=== PATIENT | male | born 1985 | race Caucasian/White ===

== ENCOUNTER 2019-11-20 15:03 | Emergency (ER) | payer MEDICARE, MEDICAID ==
[~2019-11-20] VITALS: Ht 170.2 cm; Wt 124.7 kg
[2019-11-20 15:36] VITALS: BP_SYST 141
--- NOTE | 2019-11-20 17:39 | NUR ---
Patient to ER bed 3 to gown for evaluation. Side rails up.
--- NOTE | 2019-11-20 17:39 | NUR ---
Patient arrived in the ED c/o RUQ abdominal pain with intermittent SOB that started 4 days ago. Denied any chest pain. Denied any fevers, nausea, vomiting or chills. Patient is alert and oriented x4, respirations even and unlabored, speaking in full sentences and ambulating with a steady gait. VSS, pain level 10/10. Informed of the approximate wait time. Instructed to notify ED staff for any changes in condition or worsening of symptoms while waiting to be seen by the provider. Patient verbalized understanding.
--- NOTE | 2019-11-20 17:40 | NUR ---
ER Dr. Heart at bedside examining patient.
[2019-11-20 17:41] LABS: BASOPHILS # (AUTO) 0.1 K/uL (0.0-0.2); BASOPHILS % (AUTO) 0.7 % (0.0-2.0); EOSINOPHILS # (AUTO) 0.3 K/uL (0.0-0.4); EOSINOPHILS % (AUTO) 3.2 % (0.0-4.0); HEMATOCRIT 45.4 % (36-54); HEMOGLOBIN 14.8 g/dL (14.0-18.0); LYMPHOCYTES # (AUTO) 1.9 K/uL (1.0-5.5); LYMPHOCYTES % (AUTO) 21.9 % (20.5-51.5); MEAN CORPUSCULAR HEMOGLOBIN 28 pg (27-31); MEAN CORPUSCULAR HGB CONC 33 % (32-36); MEAN CORPUSCULAR VOLUME 86 fL (79.0-98.0); MONOCYTES # (AUTO) 0.7 K/uL (0.0-1.0); MONOCYTES % (AUTO) 8.3 % (1.7-9.3); NEUTROPHILS # (AUTO) 5.6 K/uL (1.8-7.7); NEUTROPHILS % (AUTO) 65.9 % (40.0-70.0); PLATELET COUNT (AUTO) 183 K/uL (130-430); RED CELL DISTRIBUTION WIDTH 15.4 % (9.0-15.0); WHITE BLOOD COUNT (AUTO) 8.5 K/uL (4.8-10.8)
--- NOTE | 2019-11-20 17:52 | NUR ---
Urine specimen collected and dipped.
[2019-11-20 18:30] LABS: CALCIUM 8.9 mg/dL (8.4-11.0); CREATININE 0.75 mg/dL (0.55-1.30); POTASSIUM 3.9 mmol/L (3.5-5.1)
[2019-11-20 18:31] LABS: INR 0.9 (0.80-1.20); PROTHROMBIN TIME 9.3 SECS (9.5-12.5)
[2019-11-20 18:35] LABS: ALBUMIN 3.7 g/dL (3.4-4.8); TOTAL BILIRUBIN 0.3 mg/dL (0.0-1.0)
--- NOTE | 2019-11-20 19:10 | NUR ---
Report given and care transferred to TOÑITO Campoverde.
--- NOTE | 2019-11-20 19:15 | NUR ---
Portable X Ray bedside, well tolerated
[2019-11-20 19:35] VITALS: BP_SYST 124
--- NOTE | 2019-11-20 19:35 | NUR ---
Patient given written and verbal discharge instructions and verbalizes understanding. ER MD discussed with patient the results and treatment provided. Patient in stable condition. ID arm band removed. Rx of Motrin, Azithromycin, and Sudafed given. Patient educated on pain management and to follow up with PMD. Pain Scale 0/10 Opportunity for questions provided and answered. Medication side effect fact sheet provided.
== END 2019-11-20 19:35 | disposition home or self-care (01) ==
LOC: SED 15:03
DX: R10.11 Right upper quadrant pain (principal); J40 Bronchitis, not specified as acute or chronic
CPT/HCPCS: 36415; 71045; 76700-TC; 80053; 81002; 82150-TC; 83605; 83690-TC; 85025; 85610-TC; 85730-TC; 99284

== ENCOUNTER 2019-11-24 23:44 | Inpatient (IN) | payer MEDICARE, MEDICAID ==
[~2019-11-24] VITALS: Ht 170.2 cm; Wt 122.5 kg
[2019-11-24 23:50] VITALS: BP_SYST 91
--- NOTE | 2019-11-25 00:19 | NUR ---
Patient to ER bed 4 to gown for evaluation. Side rails up. Report given to Sylvia SIBLEY.
--- NOTE | 2019-11-25 00:26 | NUR ---
Note undone in EDM - 11/25/19 at 0309 by ABRAHAM Pt presents to ER with c/o cough. Pt A&Ox4. Pt states he was seen here on 11/20/2019 and diagnosed with bronchitis but that symptoms have gotten worse. Pt states substernal chest pain with cough. Pt states nausea and vomiting present. Pt states states SOB, fever, body aches and head ache present. Pt states pain is 10/10. Upon assessment, pt has fever and chills and is using accessory muscles to breath. Pt has wheezing and rales noted. Pt on 2L nasal cannula with saturation of 91%. Will continue to monitor. This is a 34-year-old Male, with a history of hypertension and anxiety, who presents to the ED secondary to worsening cough over the past 8 days. No alleviating or exacerbating factors. Patient reports of associated chest pain when he coughs. Otherwise, he has no other complaints at this time. No headaches, palpitations, shortness of breath, fevers, congestion, body aches, nausea, vomiting, diarrhea, abdominal pain, back pain, recent travels, or sick contacts. Patient mentions he was seen here 11/20/2019. Patient had a negative chest x-ray and was diagnosed with Bronchitis. Notes of no relief with Z-pack given.
--- NOTE | 2019-11-25 00:26 | NUR ---
Pt presents to ER with c/o cough. Pt A&Ox4. Pt states he was seen here on 11/20/2019 and diagnosed with bronchitis but that symptoms have gotten worse. Pt states substernal chest pain with cough. Pt states nausea and vomiting present. Pt states states SOB, fever, body aches and head ache present. Pt states pain is 10/10. Upon assessment, pt has fever and chills and is using accessory muscles to breath. Pt has wheezing and rales noted bilaterally. Pt on 2L nasal cannula with saturation of 91%. Will continue to monitor.
[2019-11-25] MEDS ORDERED: ACETAMINOPHEN 325 MG TABLET PO ONE (01:15)
--- NOTE | 2019-11-25 01:33 | NUR ---
ER Dr. Guerra at bedside examining patient.
--- NOTE | 2019-11-25 01:41 | NUR ---
# 20 gauge angiocath placed to R AC. Use of asceptic technique. Opsite placed over site. Blood return noted. Blood for lab drawn from site. Flushed with 10 cc of normal saline. No evidence of infiltration noted. Patient tolerated well.
[2019-11-25] MEDS ORDERED: IPRATROPIUM/ALBUTEROL SULFATE 3 ML AMPUL.NEB (DUONEB) INH ONE (02:30)
--- NOTE | 2019-11-25 02:36 | NUR ---
Pt medicated per MD orders. Pt tolerated well. Will continue to monitor.
[2019-11-25] MEDS ORDERED: NACL 0.9% IV ONE ×2 (02:37→03:45)
[2019-11-25] MEDS ORDERED: cefTRIAXone 1 GM IVPB PREMIX 50 ML IV ONE (02:45)
--- NOTE | 2019-11-25 03:00 | NUR ---
RT at bedside.
[2019-11-25] MEDS ORDERED: HYDROcodone/ACETAMIN 5-325 MG TAB (NORCO/ VICODIN) PO PRN ×2 (03:15→08:15)
[2019-11-25] MEDS ORDERED: ONDANSETRON HCL 4 MG/2 ML VIAL IVP PRN ×2 (03:15→08:15)
[2019-11-25] MEDS ORDERED: ACETAMINOPHEN 325 MG TABLET PO PRN ×2 (03:15→08:15)
[2019-11-25] MEDS ORDERED: NACL 0.9% 1,000 ML IV ONE (03:15)
[2019-11-25 03:22] LABS: BASOPHILS # (AUTO) 0.1 K/uL (0.0-0.2); BASOPHILS % (AUTO) 0.8 % (0.0-2.0); EOSINOPHILS # (AUTO) 0.1 K/uL (0.0-0.4); EOSINOPHILS % (AUTO) 1.5 % (0.0-4.0); HEMATOCRIT 40.2 % (36-54); HEMOGLOBIN 13.3 g/dL (14.0-18.0); LYMPHOCYTES # (AUTO) 0.8 K/uL (1.0-5.5); LYMPHOCYTES % (AUTO) 11.6 % (20.5-51.5); MEAN CORPUSCULAR HEMOGLOBIN 28 pg (27-31); MEAN CORPUSCULAR HGB CONC 33 % (32-36); MEAN CORPUSCULAR VOLUME 85 fL (79.0-98.0); MONOCYTES % (AUTO) 15.4 % (1.7-9.3); NEUTROPHILS # (AUTO) 4.6 K/uL (1.8-7.7); NEUTROPHILS % (AUTO) 70.7 % (40.0-70.0); PLATELET COUNT (AUTO) 173 K/uL (130-430); RED BLOOD CELL COUNT(AUTO) 4.75 MIL/uL (4.2-6.2); RED CELL DISTRIBUTION WIDTH 14.8 % (9.0-15.0); WHITE BLOOD COUNT (AUTO) 6.5 K/uL (4.8-10.8)
[2019-11-25 03:37] LABS: PROTHROMBIN TIME 10.4 SECS (9.5-12.5)
[2019-11-25 03:40] LABS: CALCIUM 8.2 mg/dL (8.4-11.0); CREATININE 1.04 mg/dL (0.55-1.30); POTASSIUM 3.9 mmol/L (3.5-5.1)
--- NOTE | 2019-11-25 03:52 | NUR ---
Dr Marks cancelled IVF bolus by Dr Guerra,Dr Guerra notified and re-ordered ivf ns bolus 3700ml.
[2019-11-25 03:55] LABS: ALBUMIN 3.4 g/dL (3.4-4.8); PHOSPHORUS 3.2 mg/dL (2.7-4.5); THYROID STIMULATING HORMONE 1.63 uIu/mL (0.36-3.74); TOTAL BILIRUBIN 0.8 mg/dL (0.0-1.0)
--- NOTE | 2019-11-25 04:02 | NUR ---
MD Guerra speaking to MD Ly.
[2019-11-25] MEDS ORDERED: methylPREDNISolone SOD SUCC/PF 62.5 MG/ML VIAL IVP ONE (04:45)
--- NOTE | 2019-11-25 04:58 | NUR ---
Patient will be admitted to [facility]. Admitted to MEDICAL SURGICAL unit. Awaiting bed placement. Belongings list completed. Complete and up to date summary report printed. SBAR report to be given at bedside with opportunity for questions.
[2019-11-25] MEDS ORDERED: MULT-1170 PO (05:14)
[2019-11-25] MEDS ORDERED: SER100 PO (05:14)
[2019-11-25] MEDS ORDERED: THIA100T70 PO (05:14)
[2019-11-25] MEDS ORDERED: PRAZ2CAP2 PO (05:14)
[2019-11-25] MEDS ORDERED: FOLI-43 PO (05:14)
[2019-11-25] MEDS ORDERED: TRAZ300T11 PO (05:14)
[2019-11-25] MEDS ORDERED: NALT50TA PO (05:14)
[2019-11-25] MEDS ORDERED: PROP10TA10 PO (05:14)
[2019-11-25] MEDS ORDERED: [UNRECOGNIZED DRUG - CODE] PO (05:14)
--- NOTE | 2019-11-25 05:14 | NUR ---
Medication reconciliation completed with information provided by patient. Any prior medication reconciliation on file was reviewed and corrected.
[2019-11-25 05:16] LABS: BILIRUBIN,URINE NEGATIVE (NEGATIVE); BLOOD, URINE NEGATIVE (NEGATIVE); CLARITY/URINE CLEAR (CLEAR); COLOR,URINE YELLOW (YELLOW); GLUCOSE,URINE NEGATIVE (NEGATIVE); KETONES,URINE TRACE (NEGATIVE); LEUKOCYTE ESTERASE ,URINE NEGATIVE (NEGATIVE); NITRITE, URINE NEGATIVE (NEGATIVE); PROTEIN URINE NEGATIVE (NEGATIVE); UROBILINOGEN,URINE 0.2 (0.2-1.0)
--- NOTE | 2019-11-25 05:54 | NUR ---
Transfer to [facility]. IV present no sign or symptom of infiltration.
--- NOTE | 2019-11-25 06:00 | NUR ---
ADMISSION NOTE Received patient from ER via melly, received report from ABHI SIBLEY. Patient admitted with diagnosis of PNEUMONIA. Patient oriented to hospital routine, call light, toileting and safety-patient verbalized understanding.
[2019-11-25 06:22] VITALS: BP_SYST 116
[2019-11-25] MEDS: IPRATROPIUM/ALBUTEROL SULFATE 3 ML AMPUL.NEB (DUONEB) INH SCH ×3 (07:15→19:48)
[2019-11-25] MEDS ORDERED: KETOROLAC TROMETHAMINE 30 MG VIAL IVP ONE (07:15)
--- NOTE | 2019-11-25 07:16 | NUR ---
CALLED MD. PATIENT IS REQUESTING FOR PAIN MEDICATION FOR HIS CHEST PAIN DURING COUGH AND INSPIRATION 07/26. MD ORDERED TORADOL 30MG IVP ONE TIME DOSE TO BE GIVEN NOW, AND DUONEB Q6H WHILE AWAKE WITH FIRST DOSE TO BE GIVEN NOW. PRIMARY CARE NURSE RADHA MADE AWARE.
[2019-11-25 07:50] VITALS: BP_SYST 116
[2019-11-25 08:00] VITALS: BP_SYST 129
--- NOTE | 2019-11-25 08:00 | NUR ---
RN OPENING NOTE PATIENT IS RESTING IN BED, ALERT ORIENTED X4. DENIES PAIN OR DISCOMFORT. BED AT LOW POSITION AND CALL LIGHT WITHIN REACH, PATIENT WAS ASSESSED, VITAL SIGNS ARE STABLE WILL CONTINUE TO MONITOR
[2019-11-25] MEDS ORDERED: DOCUSATE SODIUM 100 MG CAPSULE PO SCH (09:00)
[2019-11-25] MEDS ORDERED: cefTRIAXone 1 GM in D5W 50 ML IV SCH (09:00)
[2019-11-25] MEDS ORDERED: LACTOBACILLUS RHAMNOSUS GG 1 CAP CAPSULE PO SCH (09:00)
[2019-11-25] MEDS: DOCUSATE SODIUM 100 MG CAPSULE PO SCH (09:00)
[2019-11-25] MEDS: NACL 0.9% 1,000 ML IV SCH ×2 (09:05→18:15)
--- NOTE | 2019-11-25 10:00 | NUR ---
RN NOTE PATIENT WAS GIVEN HIS MEDICATION, AND ATE HIS BREAKFAST, WILL CONTINUE TO MONITOR.
[2019-11-25 12:00] VITALS: BP_SYST 125
[2019-11-25] MEDS ORDERED: KETOROLAC TROMETHAMINE 30 MG VIAL IVP PRN (12:00)
--- NOTE | 2019-11-25 12:00 | NUR ---
RN NOTE PATIENT WAS SERVED HIS LUNCH.
[2019-11-25] MEDS ORDERED: THIAMINE HCL 100 MG TABLET PO ONE (12:30)
[2019-11-25] MEDS ORDERED: FOLIC ACID 1 MG TABLET PO ONE (12:30)
[2019-11-25] MEDS: ACETYLCYSTEINE 10% 4 ML VIAL (RT) INH SCH ×2 (13:27→19:48)
--- NOTE | 2019-11-25 14:00 | NUR ---
RN NOTE PATIENT WAS EDUCATED ABOUT FALL PREVENTION, HAS VISITORS. PATIENT VERBALIZED UNDERSTANDING,
[2019-11-25] MEDS: methylPREDNISolone SOD SUCC/PF 62.5 MG/ML VIAL IVP SCH ×2 (15:13→21:42)
[2019-11-25 16:00] VITALS: BP_SYST 121
--- NOTE | 2019-11-25 16:00 | NUR ---
RN NOTE PATIENT VITAL SIGNS ARE STABLE. DENIES PAIN OR DISCOMFORT.
--- NOTE | 2019-11-25 18:00 | NUR ---
RN CLOSING NOTE PATIENT WAS SERVED HIS DINNER. MOVED TO ROOM 1058 C,WILL CONTINUE TO MONITOR AND WILL ENDORSE TO NEXT SHIFT.
[2019-11-25 19:33] LABS: BARBITURATE, URINE NEGATIVE (NEG <=200); METHAMPHETAMINES SCREEN,URINE NEGATIVE (NEG <=500); URINE AMPHETAMINE NEGATIVE (NEG <=500); URINE METHADONE NEGATIVE (NEG <=200)
[2019-11-25 19:34] LABS: BENZODIAZEPINE, URINE POSITIVE (NEG <=150); CANNABINOID, URINE NEGATIVE (NEG <=50); COCAINE, URINE NEGATIVE (NEG <=150); OPIATE, URINE NEGATIVE (NEG <=100); PHENCYCLIDINE SCREEN,URINE NEGATIVE (NEG <=25); UR TRICYCLIC ANTIDEPRESSANTS NEGATIVE (NEG <=300); URINE OXYCODONE SCREEN NEGATIVE (NEG <=100); URINE PROPOXYPHENE SCREEN NEGATIVE (NEG <=300)
--- NOTE | 2019-11-25 19:45 | NUR ---
OPENING NOTES PATIENT OUT OF ROOM TO XRAY DEPARTMENT FOR CHEST XRAY ORDER.
[2019-11-25 20:06] VITALS: BP_SYST 121
[2019-11-25] MEDS: guaiFENesin 200 MG/CODEINE 20 MG/ 10 ML UDC PO PRN (20:11)
--- NOTE | 2019-11-25 20:13 | NUR ---
PAIN MGT/COUGH PATIENT MEDICATED WITH NORCO FOR C/O CHEST TIGHTNESS WHEN COUGHING. MEDICATED WITH NORCO AND ROBITUSSIN WITH CODEINE ORDERED. VITAL SIGNS STABLE.
[2019-11-25] MEDS: traZODone HCL 50 MG TABLET (DESYREL) PO SCH (21:41)
[2019-11-25] MEDS: QUEtiapine FUMARATE 100 MG TABLET PO SCH (21:41)
[2019-11-25] MEDS: PRAZOSIN HCL 1 MG CAPSULE PO SCH (21:42)
--- NOTE | 2019-11-25 21:42 | NUR ---
MED PASS PATIENT DUE MEDICATIONS GIVEN AND TOLERATED. HS SNACK PROVIDED.
--- NOTE | 2019-11-26 00:35 | NUR ---
ROUNDS PATIENT RESTING IN BED. NO DISTRESS NOTED.
[2019-11-26] MEDS: IPRATROPIUM/ALBUTEROL SULFATE 3 ML AMPUL.NEB (DUONEB) INH SCH ×4 (01:00→19:50)
[2019-11-26 02:04] VITALS: BP_SYST 105
--- NOTE | 2019-11-26 03:30 | NUR ---
ROUNDS PATIENT RESTING IN BED. INTERMITTENT SNORING NOTED. IVF INFUSING.
[2019-11-26] MEDS: NACL 0.9% 1,000 ML IV SCH (04:05)
[2019-11-26] MEDS: methylPREDNISolone SOD SUCC/PF 62.5 MG/ML VIAL IVP SCH (05:52)
[2019-11-26] MEDS: cefTRIAXone 1 GM in D5W 50 ML IV SCH (05:52)
--- NOTE | 2019-11-26 06:39 | NUR ---
CLOSING NOTES PATIENT NEEDS ATTENDED. IVF INFUSING WITH IV LINE INTACT AND PATENT. CALL LIGHT WITH IN REACH.
[2019-11-26] MEDS: ACETYLCYSTEINE 10% 4 ML VIAL (RT) INH SCH ×4 (07:21→19:51)
[2019-11-26 07:22] LABS: BASOPHILS % (AUTO) 0.1 % (0.0-2.0); HEMATOCRIT 41.6 % (36-54); HEMOGLOBIN 13.2 g/dL (14.0-18.0); LYMPHOCYTES # (AUTO) 0.6 K/uL (1.0-5.5); LYMPHOCYTES % (AUTO) 10.9 % (20.5-51.5); MEAN CORPUSCULAR HEMOGLOBIN 28 pg (27-31); MEAN CORPUSCULAR HGB CONC 32 % (32-36); MEAN CORPUSCULAR VOLUME 86 fL (79.0-98.0); MONOCYTES # (AUTO) 0.4 K/uL (0.0-1.0); MONOCYTES % (AUTO) 6.8 % (1.7-9.3); NEUTROPHILS # (AUTO) 4.5 K/uL (1.8-7.7); NEUTROPHILS % (AUTO) 82.2 % (40.0-70.0); PLATELET COUNT (AUTO) 187 K/uL (130-430); RED BLOOD CELL COUNT(AUTO) 4.82 MIL/uL (4.2-6.2); RED CELL DISTRIBUTION WIDTH 14.5 % (9.0-15.0); WHITE BLOOD COUNT (AUTO) 5.4 K/uL (4.8-10.8)
[2019-11-26 08:30] VITALS: BP_SYST 121
[2019-11-26] MEDS: NALTREXONE 50 MG PO SCH (09:00)
[2019-11-26] MEDS: DOCUSATE SODIUM 100 MG CAPSULE PO SCH (09:00)
--- NOTE | 2019-11-26 09:25 | NUR ---
CONSULTATION PAGED REASON FOR CONSULTATION:WHEEZING ON EXP AND SOB WAS CONSULT CALLED?Y PERSON WHO WAS NOTIFIED:DANIEL CONSULTING PHYSICIAN:DAVIAN CASTELLANOS APPEALS EXAMINER SPECIALTY:PULMONARY APPEALS EXAMINER PHONE NUMBER:[phone] ORDERING PHYSICIAN:[facility]
[2019-11-26 09:42] LABS: CALCIUM 8.2 mg/dL (8.4-11.0); CREATININE 0.84 mg/dL (0.55-1.30)
[2019-11-26] MEDS: methylPREDNISolone SOD SUCC 40 MG/ML VIAL IVP SCH ×2 (09:45→21:00)
[2019-11-26] MEDS: guaiFENesin 200 MG/CODEINE 20 MG/ 10 ML UDC PO PRN ×2 (09:46→20:16)
[2019-11-26] MEDS: THIAMINE HCL 100 MG TABLET PO SCH (09:46)
[2019-11-26] MEDS: FOLIC ACID 1 MG TABLET PO SCH (09:46)
[2019-11-26] MEDS ORDERED: AZITHROMYCIN 250 MG TABLET PO ONE (11:00)
--- NOTE | 2019-11-26 11:55 | NUR ---
Dietitian Recommendations *Continue: regular diet. Please see Nutritional Assessment for details. ANTONIETTA, KALLI
[2019-11-26 12:00] VITALS: BP_SYST 118
[2019-11-26 16:04] VITALS: BP_SYST 141
[2019-11-26] MEDS: BENZONATATE 100 MG CAPSULE (TESSALON) PO SCH ×2 (17:23→21:00)
--- NOTE | 2019-11-26 18:59 | NUR ---
Patient tolerates treatment well. Still requests for smoke break. Unable to take patient d/t safety priority for other patient's on the program writer's census. Patient breathing even, unlabored. Coughing frequently. Started on tessalon pearls. Will endorse to night team registered nurse. Alexsander Vick RN
[2019-11-26 20:00] VITALS: BP_SYST 132
[2019-11-26] MEDS: BUDESONIDE 0.5 MG/2 ML AMPUL.NEB INH SCH (20:15)
[2019-11-26] MEDS: QUEtiapine FUMARATE 100 MG TABLET PO SCH (21:00)
[2019-11-26] MEDS: traZODone HCL 50 MG TABLET (DESYREL) PO SCH (21:00)
[2019-11-26] MEDS: PRAZOSIN HCL 1 MG CAPSULE PO SCH (23:00)
[2019-11-26] MEDS ORDERED: traZODone HCL 50 MG TABLET (DESYREL) ONE (23:22)
[2019-11-27] MEDS: IPRATROPIUM/ALBUTEROL SULFATE 3 ML AMPUL.NEB (DUONEB) INH SCH ×4 (00:50→19:55)
[2019-11-27 04:00] VITALS: BP_SYST 138
[2019-11-27] MEDS: cefTRIAXone 1 GM in D5W 50 ML IV SCH (04:36)
[2019-11-27 08:00] VITALS: BP_SYST 124; BP_SYST 128
--- NOTE | 2019-11-27 08:00 | NUR ---
received awake and c/o coughing and cough med to be given resp even and unlabored and occ cough noted.iv infusing at 100 hr.taking diet well repositions self in bed continue to monitor call hernandez in place.
[2019-11-27] MEDS: DOCUSATE SODIUM 100 MG CAPSULE PO SCH (09:00)
[2019-11-27] MEDS: FOLIC ACID 1 MG TABLET PO SCH (09:00)
[2019-11-27] MEDS: NALTREXONE 50 MG PO SCH (09:00)
[2019-11-27] MEDS: THIAMINE HCL 100 MG TABLET PO SCH (09:00)
[2019-11-27] MEDS: AZITHROMYCIN 250 MG TABLET PO SCH (09:00)
[2019-11-27] MEDS: BUDESONIDE 0.5 MG/2 ML AMPUL.NEB INH SCH ×2 (11:18→20:10)
[2019-11-27] MEDS ORDERED: methylPREDNISolone SOD SUCC/PF 62.5 MG/ML VIAL IVP ONE (12:15)
[2019-11-27] MEDS ORDERED: methylPREDNISolone SOD SUCC 40 MG/ML VIAL IVP ONE (12:15)
[2019-11-27] MEDS: BENZONATATE 100 MG CAPSULE (TESSALON) PO SCH ×2 (15:00→21:22)
[2019-11-27] MEDS: guaiFENesin 200 MG/CODEINE 20 MG/ 10 ML UDC PO PRN ×2 (15:41→22:36)
[2019-11-27 16:01] VITALS: BP_SYST 129
[2019-11-27 20:00] VITALS: BP_SYST 133
[2019-11-27] MEDS: PRAZOSIN HCL 1 MG CAPSULE PO SCH (21:21)
[2019-11-27] MEDS: traZODone HCL 50 MG TABLET (DESYREL) PO SCH (21:21)
[2019-11-27] MEDS: methylPREDNISolone SOD SUCC 40 MG/ML VIAL IVP SCH (21:22)
[2019-11-27] MEDS: QUEtiapine FUMARATE 100 MG TABLET PO SCH (21:22)
[2019-11-28] VITALS: BP_SYST 135
[2019-11-28] MEDS: IPRATROPIUM/ALBUTEROL SULFATE 3 ML AMPUL.NEB (DUONEB) INH SCH ×3 (00:25→10:02)
[2019-11-28] MEDS: cefTRIAXone 1 GM in D5W 50 ML IV SCH (06:04)
[2019-11-28 07:21] VITALS: BP_SYST 124
[2019-11-28] MEDS: BUDESONIDE 0.5 MG/2 ML AMPUL.NEB INH SCH (07:21)
[2019-11-28 08:06] VITALS: BP_SYST 124
--- NOTE | 2019-11-28 08:08 | NUR ---
AM rounds: Patient is oriented. Non productive cough noted. Patient claims still having shortness of breath. On o2 2li/min via nasal cannula with 100% saturation.. Denies chest discomfort. Call light within reach.
[2019-11-28] MEDS ORDERED: ALBMDI INH (08:46)
[2019-11-28] MEDS ORDERED: LEVO500T89 PO (08:46)
[2019-11-28] MEDS ORDERED: PRED20TA PO (08:46)
[2019-11-28] MEDS: NALTREXONE 50 MG PO SCH (09:00)
[2019-11-28] MEDS: BENZONATATE 100 MG CAPSULE (TESSALON) PO SCH (09:20)
[2019-11-28] MEDS: methylPREDNISolone SOD SUCC 40 MG/ML VIAL IVP SCH (09:20)
[2019-11-28] MEDS: AZITHROMYCIN 250 MG TABLET PO SCH (09:20)
[2019-11-28] MEDS: DOCUSATE SODIUM 100 MG CAPSULE PO SCH (09:20)
[2019-11-28] MEDS: THIAMINE HCL 100 MG TABLET PO SCH (09:20)
[2019-11-28] MEDS: FOLIC ACID 1 MG TABLET PO SCH (09:20)
[2019-11-28 10:03] VITALS: BP_SYST 124
--- NOTE | 2019-11-28 10:56 | NUR ---
D/C Patient Patient given medication reconciliation form and D/C instructions. Exit Care provided. Patient verbalized understanding. MD discussed with patient the results and treatment provided. Ambulatory with steady gait for discharge to home. Patient in stable condition, ID band removed. IV catheter removed, intact and dressing applied, no active bleeding. Rx of Prednisone, Levaquin, Albuterol puff given. Patient educated on pain management and follow up with PCP. All belongings sent with patient.
--- NOTE | 2019-12-04 12:05 | NUR ---
Discharge Follow Up Phone Call Phoned patient, , and left a voicemail message with no patient name identifier. Reminded patient to make a follow up appointment, asked if prescriptions were filled and offered assistance along with Social Service contact information. Will remain available.
== END 2019-11-28 10:55 | disposition home or self-care (01) | DRG 193 ==
LOC: SED 23:44 → SMU 11-25 04:55 → OBSVTOIN 11-27 11:20
PROVIDERS: ADMIT Family Medicine; ATTEND Family Medicine
DX: J12.9 Viral pneumonia, unspecified (principal); J96.01 Acute respiratory failure with hypoxia; Z68.42 Body mass index [BMI] 45.0-49.9, adult; J20.9 Acute bronchitis, unspecified; F10.20 Alcohol dependence, uncomplicated; I10 Essential (primary) hypertension; F32.9 Major depressive disorder, single episode, unspecified; F41.9 Anxiety disorder, unspecified; E66.01 Morbid (severe) obesity due to excess calories; Z87.891 Personal history of nicotine dependence; Z79.899 Other long term (current) drug therapy; Z71.41 Alcohol abuse counseling and surveillance of alcoholic; Z87.81 Personal history of (healed) traumatic fracture
CPT/HCPCS: 36415; 36600; 71045; 71046-TC; 80048; 80053; 80061; 80307; 81003; 82803-TC; 83036; 83605; 83735-TC; 83880; 84100-TC; 84439; 84443-TC; 85025; 85379; 85610-TC; 86710; 87040-TC; 94640; 94760; 96361; 96365; 99285; G0378; J0696; J1030; J1885; J1956; J2930; J7030; J7060; J7608; J7620; J7626; Q0144

== ENCOUNTER 2020-01-27 18:38 | Emergency (ER) | payer MEDICARE, MEDICAID ==
[~2020-01-27] VITALS: Ht 172.7 cm; Wt 124.7 kg
[2020-01-27 18:38] VITALS: BP_SYST 139
[~2020-01-27 18:38] MED LIST: ALBMDI INH; FOLI-43 PO; LEVO500T89 PO; MULT-1170 PO; NALT50TA PO; PRAZ2CAP2 PO; PRED20TA PO; PROP10TA10 PO; SER100 PO; THIA100T70 PO; TRAZ300T11 PO; [UNRECOGNIZED DRUG - CODE] PO
[2020-01-27] MEDS ORDERED: NACL 0.9% 1,000 ML IV ONE (18:44)
[2020-01-27 19:17] LABS: BASOPHILS % (AUTO) 0.7 % (0.0-2.0); EOSINOPHILS # (AUTO) 0.2 K/uL (0.0-0.4); EOSINOPHILS % (AUTO) 3.7 % (0.0-4.0); HEMATOCRIT 43.1 % (36-54); HEMOGLOBIN 14.3 g/dL (14.0-18.0); LYMPHOCYTES # (AUTO) 3.1 K/uL (1.0-5.5); LYMPHOCYTES % (AUTO) 53.2 % (20.5-51.5); MEAN CORPUSCULAR HEMOGLOBIN 28 pg (27-31); MEAN CORPUSCULAR HGB CONC 33 % (32-36); MEAN CORPUSCULAR VOLUME 84 fL (79.0-98.0); MONOCYTES # (AUTO) 0.3 K/uL (0.0-1.0); NEUTROPHILS # (AUTO) 2.2 K/uL (1.8-7.7); NEUTROPHILS % (AUTO) 37.4 % (40.0-70.0); PLATELET COUNT (AUTO) 188 K/uL (130-430); RED BLOOD CELL COUNT(AUTO) 5.13 MIL/uL (4.2-6.2); RED CELL DISTRIBUTION WIDTH 14.9 % (9.0-15.0); WHITE BLOOD COUNT (AUTO) 5.8 K/uL (4.8-10.8)
[2020-01-27 19:37] LABS: ANION GAP 9 (5-15); CALCIUM 7.7 mg/dL (8.4-11.0); CHLORIDE 104 mmol/L (98-107); CREATININE 0.94 mg/dL (0.55-1.30); GLUCOSE 145 mg/dL (70-99); POTASSIUM 3.7 mmol/L (3.5-5.1); SODIUM SERUM 141 mmol/L (136-145); UREA NITROGEN, BLOOD 9 mg/dL (8-21)
[2020-01-27 19:45] LABS: ALANINE AMINOTRANSFERASE 92 U/L (12-78); ALBUMIN 3.4 g/dL (3.4-4.8); ALCOHOL, BLOOD 341 mg/dL (<10); AMYLASE 59 U/L (0-100); ASPARTATE AMINOTRANSFERASE 60 U/L (10-37); LIPASE 444 U/L (73-393); TOTAL BILIRUBIN 0.4 mg/dL (0.0-1.0)
[2020-01-27 19:47] LABS: GFR AFRICAN AMERICAN 118 mL/min (>90)
[2020-01-27 19:48] LABS: ACETAMINOPHEN < 1 ug/mL (1-30)
[2020-01-27 19:50] LABS: INR 0.9 (0.80-1.20); PROTHROMBIN TIME 9.2 SECS (9.5-12.5)
[2020-01-27 21:14] VITALS: BP_SYST 133
== END 2020-01-27 21:14 | disposition home or self-care (01) ==
LOC: SED 18:38
DX: S00.83XA Contusion of other part of head, initial encounter (principal); F10.129 Alcohol abuse with intoxication, unspecified; I10 Essential (primary) hypertension; F17.290 Nicotine dependence, other tobacco product, uncomplicated; Z79.899 Other long term (current) drug therapy; Y90.8 Blood alcohol level of 240 mg/100 ml or more; W18.39XA Other fall on same level, initial encounter; Y93.89 Activity, other specified; Y92.89 Other specified places as the place of occurrence of the external cause; Y99.8 Other external cause status
CPT/HCPCS: 36415; 70450-TC; 71045; 80053; 82150-TC; 83605; 83690-TC; 84484; 85025; 85610-TC; 85730-TC; 87040-TC; 93005; 99285; G0480; G0481; G0482; J7030

== ENCOUNTER 2020-06-17 02:02 | Emergency (ER) | payer MEDICARE, MEDICAID ==
[~2020-06-17] VITALS: Ht 175.3 cm; Wt 108.9 kg
--- NOTE | 2020-06-17 02:15 | NUR ---
# 20 gauge angiocath placed to right hand. Use of asceptic technique. Opsite placed over site. Blood return noted. Blood for lab drawn from site. Flushed with 10 cc of normal saline. No evidence of infiltration noted. Patient tolerated well.
[2020-06-17 02:20] VITALS: BP_SYST 106
--- NOTE | 2020-06-17 02:20 | NUR ---
Placed in room 2 . Placed on surveillance system monitor, blood pressure machine and pulse oximeter. To gown for exam. Side rails up.
--- NOTE | 2020-06-17 02:21 | NUR ---
ER at bedside examining patient.
--- NOTE | 2020-06-17 02:22 | NUR ---
Called Poison Control at [phone] and spoke with Hill. Per recommendations: down below. Dr. Nolasco notified. Will continue to monitor patient. side effects: sedation, seizures, tachy. jewell, hypoten, prolong qtc, anticholi ativan if patient gets agitated fluid if patient get hypotensive (pressors, levophed) ekg now, 4-6 hours prolonged qtc give magnesium 1-2g get electrolyte panel - ca, k, mag & tylenol, aspirin,
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
[2020-06-17] MEDS ORDERED: NACL 0.9% 1,000 ML IV ONE ×2 (02:30→19:00)
--- NOTE | 2020-06-17 02:30 | NUR ---
PT PRESENTS UNDER THE INFLUENCE WITH ACLS TRASPORT. HE STATES THAT HE HAS BEEN DRINKING ALCOHOL TODAY AND TOOK AN UNKNOWN AMOUNT OF SEROQUEL AND TRAZODONE TODAY WITH ALCOHOL. PRESENTS WITH SLURRED SPEECH, AGITATED AND UNCOOPERATIVE WITH STAFF. ATTEMPTING TO ELOPE, POSTURING AT STAFF AND ATTEMPTING TO AMBULATE. UNSTEAD GAIT. PT IS NOT EASILY DIRECTABLE
--- NOTE | 2020-06-17 02:30 | NUR ---
Mike hagen in [facility] - 06/17/20 at 0316 by ALMAS JILL Kessler at bedside examining patient.
--- NOTE | 2020-06-17 02:45 | NUR ---
PT PLACED IN SOFT WRIST RESTRAINTS FOR SAFETY. CONTINUOUSLY ATTEMPTING TO ELOPE AND AMBULATE DESPITE MULTIPLE ATTEMPTS TO REDIRECT. PT IS AGITATED AND YELLING AND THREATENING STAFF.
--- NOTE | 2020-06-17 03:00 | NUR ---
STRAIGHT CATH 14F USED TO COLLECT URINE, SPECIMEN SENT TO LAB
[2020-06-17 03:09] LABS: BASOPHILS % (AUTO) 0.5 % (0.0-2.0); EOSINOPHILS % (AUTO) 0.4 % (0.0-4.0); HEMATOCRIT 47.6 % (36-54); LYMPHOCYTES # (AUTO) 1.9 K/uL (1.0-5.5); LYMPHOCYTES % (AUTO) 29.2 % (20.5-51.5); MEAN CORPUSCULAR HEMOGLOBIN 26 pg (27-31); MEAN CORPUSCULAR HGB CONC 34 % (32-36); MEAN CORPUSCULAR VOLUME 78 fL (79.0-98.0); MONOCYTES # (AUTO) 0.4 K/uL (0.0-1.0); MONOCYTES % (AUTO) 5.6 % (1.7-9.3); NEUTROPHILS # (AUTO) 4.2 K/uL (1.8-7.7); NEUTROPHILS % (AUTO) 64.3 % (40.0-70.0); PLATELET COUNT (AUTO) 175 K/uL (130-430); RED BLOOD CELL COUNT(AUTO) 6.13 MIL/uL (4.2-6.2); RED CELL DISTRIBUTION WIDTH 14.1 % (9.0-15.0); WHITE BLOOD COUNT (AUTO) 6.6 K/uL (4.8-10.8)
[2020-06-17 03:27] LABS: ANION GAP 12 (5-15); CALCIUM 7.7 mg/dL (8.4-11.0); CHLORIDE 100 mmol/L (98-107); CREATININE 0.78 mg/dL (0.55-1.30); GLUCOSE 120 mg/dL (70-99); POTASSIUM 4.4 mmol/L (3.5-5.1); SODIUM SERUM 134 mmol/L (136-145); UREA NITROGEN, BLOOD 26 mg/dL (8-21)
[2020-06-17 03:31] LABS: GFR AFRICAN AMERICAN 147 mL/min (>90)
--- NOTE | 2020-06-17 03:32 | NUR ---
pt managed to loosen himself out of restraints and ripped iv tubing. pt ambulated with unsteady gait to next room. pt directed back into bed and soft restraints placed on pt. pt uncooperative and threatening staff.
[2020-06-17 03:34] LABS: ALANINE AMINOTRANSFERASE 55 U/L (12-78); ALBUMIN 3.2 g/dL (3.4-4.8); ALCOHOL, BLOOD 292 mg/dL (<10); ASPARTATE AMINOTRANSFERASE 44 U/L (10-37); TOTAL BILIRUBIN 0.9 mg/dL (0.0-1.0)
[2020-06-17 03:39] LABS: ACETAMINOPHEN < 1 ug/mL (1-30)
[2020-06-17 03:43] LABS: BARBITURATE, URINE NEGATIVE (NEG <=200); BENZODIAZEPINE, URINE NEGATIVE (NEG <=150); CANNABINOID, URINE NEGATIVE (NEG <=50); COCAINE, URINE NEGATIVE (NEG <=150); METHAMPHETAMINES SCREEN,URINE NEGATIVE (NEG <=500); OPIATE, URINE NEGATIVE (NEG <=100); PHENCYCLIDINE SCREEN,URINE NEGATIVE (NEG <=25); UR TRICYCLIC ANTIDEPRESSANTS POSITIVE (NEG <=300); URINE AMPHETAMINE NEGATIVE (NEG <=500); URINE METHADONE NEGATIVE (NEG <=200); URINE OXYCODONE SCREEN NEGATIVE (NEG <=100); URINE PROPOXYPHENE SCREEN NEGATIVE (NEG <=300)
--- NOTE | 2020-06-17 03:46 | NUR ---
Patient to ER bed 1 to gown for evaluation. Side rails up.
--- NOTE | 2020-06-17 03:50 | NUR ---
PER DR. OROPEZA, PT VERBALLY STATED HE HAS SUICIDAL IDEATIONS AND HAD INTENT TO HARM HIMSELF.
--- NOTE | 2020-06-17 04:00 | NUR ---
Patient placed on suicide precautions. Patient placed in room within close proximity to nurses' station for closer observation and monitoring. All clothing removed, placed in hospital gown. Metal detector wand used to further screen patient of any potential hazardous belongings. All belongings inventoried, placed in bags and removed from room. Cabinets locked. BP and pulse oximeter cords, and cardiac monitor technician leads removed.
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
--- NOTE | 2020-06-17 04:53 | NUR ---
PT COMBATIVE, YELLING, SCREAMING, THREATENING AT STAFF. PT MANAGED TO GET RIGHT HAND OUT OF RESTRAINT. AWARE.
[2020-06-17] MEDS ORDERED: LORazepam 2 MG/ML VIAL IVP ONE (05:00)
[2020-06-17] MEDS ORDERED: LORazepam 2 MG/ML VIAL ONE (05:15)
--- NOTE | 2020-06-17 05:23 | NUR ---
PT ASLEEP RESTING QUIETLY IN BED. NO SIGNS OF ACUTE DISTRESS.
--- NOTE | 2020-06-17 06:19 | NUR ---
PT GRUNTING AND RESTLESS ACTIVITY. NO SIGNS OF ACUTE DISTRESS.
--- NOTE | 2020-06-17 07:13 | NUR ---
report received from Agnes SIBLEY. Pt is currently sleeping. 1:1 sitter at the bedside. Pt is currently on soft wrist BUE and BLE restraints
--- NOTE | 2020-06-17 07:16 | NUR ---
REPORT GIVEN TO TOÑITO MILLIGAN FOR CONTINUATION OF CARE.
--- NOTE | 2020-06-17 08:30 | NUR ---
pt is sleeping in bed. 1:1 sitter is at the bedside
--- NOTE | 2020-06-17 09:30 | NUR ---
pt continue to sleepin in bed
--- NOTE | 2020-06-17 10:30 | NUR ---
Dr. Lu is evaluating the pt at the bedside
--- NOTE | 2020-06-17 11:35 | NUR ---
pt continue to sleep in bed.
--- NOTE | 2020-06-17 12:35 | NUR ---
pt unable to complete psych consult w/ tele med. pt unable to stay awake and did not want to speak with the pablito KINNEY
--- NOTE | 2020-06-17 13:47 | NUR ---
Patient moved to room 5.
--- NOTE | 2020-06-17 14:31 | NUR ---
pt is sleeping in bed.
--- NOTE | 2020-06-17 15:30 | NUR ---
pt is sleeping in bed. 1:1 sitter is at the bedside
--- NOTE | 2020-06-17 16:30 | NUR ---
PT SLEEPING IN BED COMFORTABLY, V/S STABLE
--- NOTE | 2020-06-17 17:10 | NUR ---
PT IS AAOX4, HE CURRENTLY DENIES ANY SI AND DOES NOT WISH TO SEEK MENTAL HEALTH SERVICES ON HIS OWN AT THIS TIME. TO EVALUATE THE NEED FOR PSYCH EVAL
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
--- NOTE | 2020-06-17 17:30 | NUR ---
TELEMEDICINE ORDERED AND PLACED AT BEDSIDE AWAITING PSYCH CONSULT
--- NOTE | 2020-06-17 17:33 | NUR ---
DINNER TRAY ORDERED AND GIVEN TO GAYLE CARVAJAL CURRENTLY PRESENT FOR SAFETY
--- NOTE | 2020-06-17 17:49 | NUR ---
TELEMED CONSULT WITH PSYCH COMPLETED AT THE BEDSIDE, RECOMMENDATION TO DC. AWAITING REPORT FROM PSYCHIATRIST
--- NOTE | 2020-06-17 18:30 | NUR ---
Pt is awake and resting in bed. Remains in stable condition
--- NOTE | 2020-06-17 19:08 | NUR ---
Care endorsed to Lily SIBLEY. Pt remains in stable condition.
--- NOTE | 2020-06-17 20:00 | NUR ---
PT IS RESTING IN BED. NO CHANGE IN BEHAVIOR. CALM AND COOPERATIVE. STABLE
--- NOTE | 2020-06-17 20:10 | NUR ---
Patient given written and verbal discharge instructions and verbalizes understanding. ER MD discussed with patient the results and treatment provided. Patient in stable condition. ID arm band removed. IV catheter removed intact and dressing applied, no active bleeding. Patient educated on pain management and to follow up with PMD. Pain Scale 0/10. Opportunity for questions provided and answered. Medication side effect fact sheet provided. FAMILY CONTACTED TO CLINICAL SOCIAL WORKER, AUNT EN ROUTE.[facility]
[2020-06-17 20:11] VITALS: BP_SYST 117
== END 2020-06-17 20:11 | disposition home or self-care (01) ==
LOC: SED 02:02
DX: F10.129 Alcohol abuse with intoxication, unspecified (principal); R45.851 Suicidal ideations; I10 Essential (primary) hypertension; F41.9 Anxiety disorder, unspecified; F17.200 Nicotine dependence, unspecified, uncomplicated; Z79.899 Other long term (current) drug therapy; Y90.8 Blood alcohol level of 240 mg/100 ml or more
CPT/HCPCS: 36415; 80053; 80307; 85025; 93005; 96361; 96374; 99285; G0480; G0481; G0482; J2060; J7030

== ENCOUNTER 2021-03-26 15:24 | Emergency (ER) | payer MEDICARE, MEDICAID ==
[~2021-03-26] VITALS: Ht 170.2 cm; Wt 108.9 kg
[2021-03-26 15:24] VITALS: BP_SYST 106
[2021-03-26] MEDS ORDERED: DIPHENHYDRAMINE INJ 50 MG/ML VIAL IVP ONE (15:45)
[2021-03-26] MEDS ORDERED: DIPH25CA83 PO (16:13)
[2021-03-26 16:20] VITALS: BP_SYST 106
== END 2021-03-26 16:19 | disposition home or self-care (01) ==
LOC: SED 15:24
DX: G24.8 Other dystonia (principal); I10 Essential (primary) hypertension; Z79.899 Other long term (current) drug therapy
CPT/HCPCS: 96374; 99283; J1200

== ENCOUNTER 2021-03-31 22:08 | Emergency (ER) | payer MEDICARE, MEDICAID ==
[~2021-03-31] VITALS: Ht 170.2 cm; Wt 108.9 kg
[~2021-03-31 22:08] MED LIST changes: +DIPH25CA83 PO
[2021-03-31 22:18] VITALS: BP_SYST 124
[2021-03-31] MEDS ORDERED: NACL 0.9% 1,000 ML IV ONE (22:45)
[2021-03-31 22:59] LABS: BASOPHILS # (AUTO) 0.1 K/uL (0.0-0.2); BASOPHILS % (AUTO) 0.6 % (0.0-2.0); EOSINOPHILS # (AUTO) 0.4 K/uL (0.0-0.4); HEMOGLOBIN 14.2 g/dL (14.0-18.0); LYMPHOCYTES # (AUTO) 2.3 K/uL (1.0-5.5); LYMPHOCYTES % (AUTO) 20.8 % (20.5-51.5); MEAN CORPUSCULAR HEMOGLOBIN 27 pg (27-31); MEAN CORPUSCULAR HGB CONC 33 % (32-36); MEAN CORPUSCULAR VOLUME 81 fL (79.0-98.0); MONOCYTES # (AUTO) 0.6 K/uL (0.0-1.0); MONOCYTES % (AUTO) 5.1 % (1.7-9.3); NEUTROPHILS # (AUTO) 7.6 K/uL (1.8-7.7); NEUTROPHILS % (AUTO) 69.5 % (40.0-70.0); PLATELET COUNT (AUTO) 192 K/uL (130-430); RED BLOOD CELL COUNT(AUTO) 5.34 MIL/uL (4.2-6.2); RED CELL DISTRIBUTION WIDTH 15.1 % (9.0-15.0); WHITE BLOOD COUNT (AUTO) 10.9 K/uL (4.8-10.8)
[2021-03-31 23:19] LABS: ALBUMIN 3.3 g/dL (3.4-4.8); CALCIUM 8.3 mg/dL (8.4-11.0); CREATININE 0.8 mg/dL (0.55-1.30); POTASSIUM 3.8 mmol/L (3.5-5.1); TOTAL BILIRUBIN 0.2 mg/dL (0.0-1.0)
[2021-04-01] MEDS ORDERED: AMOX-426 PO (00:36)
[2021-04-01] MEDS ORDERED: NAPR-688 PO (00:36)
[2021-04-01] MEDS ORDERED: ERYEYE EACH EYE (00:40)
[2021-04-01 00:49] VITALS: BP_SYST 124
== END 2021-04-01 00:49 | disposition home or self-care (01) ==
LOC: SED 22:08
DX: S06.0X1A Concussion with loss of consciousness of 30 minutes or less, initial encounter (principal); S09.22XA Traumatic rupture of left ear drum, initial encounter; I10 Essential (primary) hypertension; Z79.899 Other long term (current) drug therapy; W18.39XA Other fall on same level, initial encounter; Y93.89 Activity, other specified; Y92.89 Other specified places as the place of occurrence of the external cause; Y99.8 Other external cause status
CPT/HCPCS: 36415; 70450; 70486; 72125; 76376; 80053; 85025; 96360; 99285; J7030

== ENCOUNTER 2021-04-03 15:16 | Emergency (ER) | payer MEDICARE, MEDICAID ==
[~2021-04-03] VITALS: Ht 170.2 cm; Wt 138.8 kg
[~2021-04-03 15:16] MED LIST changes: +AMOX-426 PO; +ERYEYE EACH EYE; +NAPR-688 PO
[2021-04-03 15:28] VITALS: BP_SYST 108
--- NOTE | 2021-04-03 15:30 | NUR ---
Patient to ER bed 6 to gown for evaluation. Side rails up.
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
--- NOTE | 2021-04-03 16:00 | NUR ---
Patient transported to radiology via gurney, accompanied by staff
--- NOTE | 2021-04-03 16:10 | NUR ---
ER at bedside examining patient.
--- NOTE | 2021-04-03 16:19 | NUR ---
pt requested to call (Kate Rich) [phone]. was called and a voicemail was left.
[2021-04-03 16:22] LABS: BASOPHILS # (AUTO) 0.1 K/uL (0.0-0.2); BASOPHILS % (AUTO) 0.8 % (0.0-2.0); EOSINOPHILS # (AUTO) 0.2 K/uL (0.0-0.4); EOSINOPHILS % (AUTO) 2.8 % (0.0-4.0); HEMATOCRIT 43.1 % (36-54); HEMOGLOBIN 14.3 g/dL (14.0-18.0); LYMPHOCYTES # (AUTO) 2.6 K/uL (1.0-5.5); LYMPHOCYTES % (AUTO) 37.3 % (20.5-51.5); MEAN CORPUSCULAR HEMOGLOBIN 27 pg (27-31); MEAN CORPUSCULAR HGB CONC 33 % (32-36); MEAN CORPUSCULAR VOLUME 80 fL (79.0-98.0); MONOCYTES # (AUTO) 0.5 K/uL (0.0-1.0); MONOCYTES % (AUTO) 6.6 % (1.7-9.3); NEUTROPHILS # (AUTO) 3.6 K/uL (1.8-7.7); NEUTROPHILS % (AUTO) 52.5 % (40.0-70.0); PLATELET COUNT (AUTO) 232 K/uL (130-430); RED BLOOD CELL COUNT(AUTO) 5.36 MIL/uL (4.2-6.2); RED CELL DISTRIBUTION WIDTH 15.1 % (9.0-15.0); WHITE BLOOD COUNT (AUTO) 6.9 K/uL (4.8-10.8)
[2021-04-03 16:45] LABS: INR 0.9 (0.80-1.20); PROTHROMBIN TIME 9.4 SECS (9.5-12.5)
[2021-04-03 16:49] LABS: ANION GAP 15 (5-15); CALCIUM 7.7 mg/dL (8.4-11.0); CHLORIDE 107 mmol/L (98-107); CREATININE 0.82 mg/dL (0.55-1.30); GLUCOSE 155 mg/dL (70-99); POTASSIUM 3.6 mmol/L (3.5-5.1); SODIUM SERUM 145 mmol/L (136-145); UREA NITROGEN, BLOOD 4 mg/dL (8-21)
[2021-04-03 16:57] LABS: ALANINE AMINOTRANSFERASE 24 U/L (12-78); ALBUMIN 3.3 g/dL (3.4-4.8); ALCOHOL, BLOOD 315 mg/dL (<10); AMYLASE 68 U/L (0-100); ASPARTATE AMINOTRANSFERASE 18 U/L (10-37); LIPASE 138 U/L (73-393); TOTAL BILIRUBIN 0.2 mg/dL (0.0-1.0)
[2021-04-03 17:01] LABS: GFR AFRICAN AMERICAN 138 mL/min (>90)
[2021-04-03 17:23] LABS: ACETONE, SERUM NEGATIVE (NEGATIVE)
[2021-04-03 17:23] LABS: BARBITURATE, URINE NEGATIVE (NEG <=200); BENZODIAZEPINE, URINE NEGATIVE (NEG <=150); CANNABINOID, URINE NEGATIVE (NEG <=50); COCAINE, URINE NEGATIVE (NEG <=150); METHAMPHETAMINES SCREEN,URINE NEGATIVE (NEG <=500); OPIATE, URINE NEGATIVE (NEG <=100); PHENCYCLIDINE SCREEN,URINE NEGATIVE (NEG <=25); UR TRICYCLIC ANTIDEPRESSANTS NEGATIVE (NEG <=300); URINE AMPHETAMINE NEGATIVE (NEG <=500); URINE METHADONE NEGATIVE (NEG <=200); URINE OXYCODONE SCREEN NEGATIVE (NEG <=100); URINE PROPOXYPHENE SCREEN NEGATIVE (NEG <=300)
[2021-04-03] MEDS ORDERED: LIB25 PO (17:44)
--- NOTE | 2021-04-03 18:06 | NUR ---
Patient given written and verbal discharge instructions and verbalizes understanding. ER MD discussed with patient the results and treatment provided. Patient in stable condition. ID arm band removed. IV catheter removed intact and dressing applied, no active bleeding. Rx of Librium given. Patient educated on pain management and to follow up with PMD. Pain Scale 0/10. Opportunity for questions provided and answered. Medication side effect fact sheet provided. Pt is AAOX4, able to ambulate without assistance, and respond appropriatley.
[2021-04-03 18:08] VITALS: BP_SYST 143
== END 2021-04-03 18:06 | disposition home or self-care (01) ==
LOC: SED 15:16
DX: F10.129 Alcohol abuse with intoxication, unspecified (principal); I10 Essential (primary) hypertension; E11.9 Type 2 diabetes mellitus without complications; I25.2 Old myocardial infarction; Y90.8 Blood alcohol level of 240 mg/100 ml or more; Z79.899 Other long term (current) drug therapy
CPT/HCPCS: 36415; 70450; 76376; 80053; 80307; 81002; 82009; 82140; 82150; 83605; 83690; 84484; 85025; 85610; 85730; 99284; G0482

== ENCOUNTER 2022-03-23 12:35 | Emergency (ER) | payer MEDICARE, MEDICAID ==
[~2022-03-23] VITALS: Ht 180.3 cm; Wt 104.3 kg
[~2022-03-23 12:35] MED LIST changes: -LEVO500T89 PO; +LEVO500T90 PO; +LIB25 PO
[2022-03-23 12:40] VITALS: BP_SYST 125
--- NOTE | 2022-03-23 12:40 | NUR ---
Pt to bed 6 for evaluation. Report to TOÑITO Messer.
--- NOTE | 2022-03-23 12:58 | NUR ---
assumed care of pt at this time. bib bls ambulance from mental health facilty. pt was dropped off at facility a few hrs ago by family with c/o not eating. pt was placed on 5150 hold by facility for gravely disabled. sitter at bedside from facility. pt c/o chest and abd pain. per sitter, pt was vomiting at facility. tachycardic at 110, vs otherwise stable. awaiting md simon. will cont to monitor
--- NOTE | 2022-03-23 13:05 | NUR ---
Dr. Driver at bedside to assess.
[2022-03-23] MEDS ORDERED: LORazepam 1 MG TABLET PO ONE (13:15)
[2022-03-23 13:27] LABS: BASOPHILS % (AUTO) 0.6 % (0.0-2.0); EOSINOPHILS % (AUTO) 0.5 % (0.0-4.0); HEMATOCRIT 48.4 % (36-54); HEMOGLOBIN 16.4 g/dL (14.0-18.0); LYMPHOCYTES # (AUTO) 0.9 K/uL (1.0-5.5); LYMPHOCYTES % (AUTO) 14.7 % (20.5-51.5); MEAN CORPUSCULAR HEMOGLOBIN 28 pg (27-31); MEAN CORPUSCULAR HGB CONC 34 % (32-36); MEAN CORPUSCULAR VOLUME 81 fL (79.0-98.0); MONOCYTES # (AUTO) 0.8 K/uL (0.0-1.0); MONOCYTES % (AUTO) 13.5 % (1.7-9.3); NEUTROPHILS # (AUTO) 4.3 K/uL (1.8-7.7); NEUTROPHILS % (AUTO) 70.7 % (40.0-70.0); PLATELET COUNT (AUTO) 210 K/uL (130-430); RED BLOOD CELL COUNT(AUTO) 5.98 MIL/uL (4.2-6.2); RED CELL DISTRIBUTION WIDTH 16.8 % (9.0-15.0); WHITE BLOOD COUNT (AUTO) 6.1 K/uL (4.8-10.8)
[2022-03-23 13:37] LABS: ANION GAP 7 (5-15); CALCIUM 8.1 mg/dL (8.4-11.0); CHLORIDE 99 mmol/L (98-107); CREATININE 0.92 mg/dL (0.55-1.30); GLUCOSE 107 mg/dL (70-99); POTASSIUM 3.4 mmol/L (3.5-5.1); SODIUM SERUM 133 mmol/L (136-145); UREA NITROGEN, BLOOD 6 mg/dL (8-21)
[2022-03-23 13:41] LABS: GFR AFRICAN AMERICAN 120 mL/min (>90)
[2022-03-23 13:45] LABS: ALANINE AMINOTRANSFERASE 30 U/L (12-78); ALBUMIN 3.1 g/dL (3.4-4.8); ASPARTATE AMINOTRANSFERASE 33 U/L (10-37); LIPASE 144 U/L (73-393); TOTAL BILIRUBIN 1.2 mg/dL (0.0-1.0)
[2022-03-23] MEDS ORDERED: FAMO20TA8 PO (14:06)
--- NOTE | 2022-03-23 14:52 | NUR ---
Called to set DC transport [facility] . ETA 30 mnts. BLS: [id number] w. restraints.
[2022-03-23 14:54] VITALS: BP_SYST 139
--- NOTE | 2022-03-23 14:58 | NUR ---
PT READY FOR DC BACK TO FACILITY, [facility]. DC INSTRUCTIONS REVIEWED WITH SITTER AT BEDSIDE. REPORT CALLED TO KARLO AT [facility]. QUESTIONS ANSWERED. VSS. NO N/V NOTED AT THIS TIME. NO DISTRESS. PT IS STABLE FOR DC. TRANSPORTATION ARRANGED BACK TO FACILITY, ETA 30-45 MINS
--- NOTE | 2022-03-23 15:12 | NUR ---
Faxed paperwork to facility.
--- NOTE | 2022-03-23 16:00 | NUR ---
AMBULANCE TRANSPORTATION HERE TO UN[facility] TENDER PT, [facility]. VSS. NO N/V NOTED. RESP EVEN AND UNLABORED. PT IS STABLE FOR DC
== END 2022-03-23 14:54 | disposition home or self-care (01) ==
LOC: SED 12:35
DX: R10.9 Unspecified abdominal pain (principal); R07.9 Chest pain, unspecified; I25.2 Old myocardial infarction; E11.9 Type 2 diabetes mellitus without complications; I10 Essential (primary) hypertension; Z79.899 Other long term (current) drug therapy
CPT/HCPCS: 36415; 80053; 83690; 84484; 85025; 93005; 99284

== ENCOUNTER 2022-06-06 22:39 | Emergency (ER) | payer MEDICARE, MEDICAID ==
[~2022-06-06] VITALS: Ht 180.3 cm; Wt 100.2 kg
[~2022-06-06 22:39] MED LIST changes: +FAMO20TA8 PO; +LEVO-62 PO; -LEVO500T90 PO
[2022-06-06 22:44] VITALS: BP_SYST 138
--- NOTE | 2022-06-06 22:50 | NUR ---
PT HERE C/O CHEST PAIN AND GENERALIZED NUMBNESS ON AND OFF X5 MOS, PT DENIES SOB, DENIES N/V/D, DENIES FEVER. DENIES SI/HI. +ANXIOUS. NO LN NOTED WITH EQUAL SCALE TANK OPERATOR AND PUSH. PMH;HTN, ANXIETY,SCHITZOPHRENIA PT AAOX4, NO SOB NOTED AND NOT IN ANY DISTRESS. PT ACCOMPANIED TO ROOM 7, AMBULATED WITH STEADY GAIT.
[2022-06-06] MEDS ORDERED: ASPIRIN 81 MG TAB.CHEW PO ONE (23:30)
[2022-06-06] MEDS ORDERED: chlordiazePOXIDE HCL 25 MG CAPSULE PO ONE (23:30)
[2022-06-07 00:23] LABS: BASOPHILS # (AUTO) 0.1 K/uL (0.0-0.2); BASOPHILS % (AUTO) 1.7 % (0.0-2.0); EOSINOPHILS # (AUTO) 0.1 K/uL (0.0-0.4); EOSINOPHILS % (AUTO) 0.7 % (0.0-4.0); HEMATOCRIT 45.6 % (36-54); HEMOGLOBIN 15.5 g/dL (14.0-18.0); LYMPHOCYTES # (AUTO) 1.2 K/uL (1.0-5.5); MEAN CORPUSCULAR HEMOGLOBIN 29 pg (27-31); MEAN CORPUSCULAR HGB CONC 34 % (32-36); MEAN CORPUSCULAR VOLUME 85 fL (79.0-98.0); MONOCYTES # (AUTO) 0.4 K/uL (0.0-1.0); MONOCYTES % (AUTO) 5.9 % (1.7-9.3); NEUTROPHILS # (AUTO) 5.4 K/uL (1.8-7.7); NEUTROPHILS % (AUTO) 74.7 % (40.0-70.0); PLATELET COUNT (AUTO) 178 K/uL (130-430); RED BLOOD CELL COUNT(AUTO) 5.36 MIL/uL (4.2-6.2); RED CELL DISTRIBUTION WIDTH 19.2 % (9.0-15.0); WHITE BLOOD COUNT (AUTO) 7.3 K/uL (4.8-10.8)
[2022-06-07] MEDS ORDERED: NACL 0.9% 1,000 ML IV ONE (00:30)
--- NOTE | 2022-06-07 00:34 | NUR ---
PT PRESENTS W C/O CHEST TIGHTING PAIN OFF AND ON FOR 4 MONTHS. PT STATES, "I FEEL LIKE I'VE BEEN POISONED" PT ALSO STATES HE HAS BEEN HEARING VOICES. LAST ETOH USE 3 DAYS AGO. A/O X 4, STEADY GAIT. TREMORS AND DIAPHORESIS NOTED.
--- NOTE | 2022-06-07 00:40 | NUR ---
URINE COLLECTED AND SENT TO LAB
[2022-06-07 01:01] LABS: ANION GAP 9 (5-15); CALCIUM 8.7 mg/dL (8.4-11.0); CHLORIDE 100 mmol/L (98-107); CREATININE 0.78 mg/dL (0.55-1.30); GLUCOSE 92 mg/dL (70-99); POTASSIUM 3.8 mmol/L (3.5-5.1); SODIUM SERUM 136 mmol/L (136-145); UREA NITROGEN, BLOOD 9 mg/dL (8-21)
[2022-06-07 01:09] LABS: ALANINE AMINOTRANSFERASE 37 U/L (12-78); ALBUMIN 3.3 g/dL (3.4-4.8); ASPARTATE AMINOTRANSFERASE 43 U/L (10-37); TOTAL BILIRUBIN 1.4 mg/dL (0.0-1.0)
[2022-06-07 01:28] LABS: GFR AFRICAN AMERICAN 145 mL/min (>90)
[2022-06-07 01:29] LABS: ALCOHOL, BLOOD < 3 mg/dL (<10)
[2022-06-07 02:23] LABS: BARBITURATE, URINE NEGATIVE (NEG <=200); BENZODIAZEPINE, URINE NEGATIVE (NEG <=150); CANNABINOID, URINE NEGATIVE (NEG <=50); COCAINE, URINE NEGATIVE (NEG <=150); METHAMPHETAMINES SCREEN,URINE NEGATIVE (NEG <=500); OPIATE, URINE NEGATIVE (NEG <=100); PHENCYCLIDINE SCREEN,URINE NEGATIVE (NEG <=25); UR TRICYCLIC ANTIDEPRESSANTS POSITIVE (NEG <=300); URINE AMPHETAMINE NEGATIVE (NEG <=500); URINE METHADONE NEGATIVE (NEG <=200); URINE OXYCODONE SCREEN NEGATIVE (NEG <=100); URINE PROPOXYPHENE SCREEN NEGATIVE (NEG <=300)
[2022-06-07 02:25] VITALS: BP_SYST 135
[2022-06-07] MEDS ORDERED: LIB25 PO (03:53)
--- NOTE | 2022-06-07 03:59 | NUR ---
Patient given written and verbal discharge instructions and verbalizes understanding. ER MD discussed with patient the results and treatment provided. Patient in stable condition. ID arm band removed. IV catheter removed intact and dressing applied, no active bleeding. Rx of given. Patient educated on pain management and to follow up with PMD. Pain Scale 0/10. Opportunity for questions provided and answered. Medication side effect fact sheet provided.
== END 2022-06-07 03:59 | disposition home or self-care (01) ==
LOC: SED 22:39
DX: R07.9 Chest pain, unspecified (principal); F10.239 Alcohol dependence with withdrawal, unspecified; R06.02 Shortness of breath; Y90.6 Blood alcohol level of 120-199 mg/100 ml; Z79.899 Other long term (current) drug therapy
CPT/HCPCS: 99285; 71045; 80307; 80053; 82550; 83880; 85025; 85379; 84484; 36415; 93005 ×2; 96360; G0482; J7030